=== PATIENT | female | born 1980 | race Hispanic/Latino ===

== ENCOUNTER 2022-03-31 15:02 | Emergency (ER) | payer MEDICAID ==
[~2022-03-31] VITALS: Ht 165.1 cm; Wt 145.1 kg
[2022-03-31 15:56] LABS: BASOPHILS % (AUTO) 0.4 % (0.0-5.0); EOSINOPHILS % (AUTO) 3.1 % (0.0-8.0); HEMATOCRIT 29.8 % (36-48); MEAN CORPUSCULAR HEMOGLOBIN 22.5 pg (27.0-33.0); MEAN CORPUSCULAR HGB CONC 30.9 g/dL (32.0-36.0); MONOCYTES % (AUTO) 8.8 % (3.0-13.0); NEUTROPHILS % (AUTO) 58.5 % (40.0-77.0); PLATELET COUNT (AUTO) 346 K/uL (130-400); RED BLOOD CELL COUNT(AUTO) 4.08 MIL/uL (4.00-5.50); RED CELL DISTRIBUTION WIDTH 18.4 % (11.0-15.5); WHITE BLOOD COUNT (AUTO) 9.3 K/uL (4.8-10.8)
[2022-03-31 16:14] LABS: CREATININE 0.7 mg/dL (0.5-1.5); POTASSIUM 4.3 mmol/L (3.5-5.1)
[2022-03-31 16:42] LABS: ALBUMIN 3.2 g/dL (3.5-5.0); TOTAL PROTEIN, SERUM 7.3 g/dL (6.0-8.3)
[2022-03-31 17:33] LABS: APPEARANCE,URINE CLEAR (CLEAR); BILIRUBIN,URINE NEGATIVE (NEGATIVE); GLUCOSE, URINE (UA) NEGATIVE (NEGATIVE); KETONES,URINE NEGATIVE (NEGATIVE); LEUKOCYTE ESTERASE ,URINE NEGATIVE Leu/uL (NEGATIVE); NITRATE,URINE NEGATIVE (NEGATIVE); OCCULT BLOOD,URINE NEGATIVE (NEGATIVE); PROTEIN,URINE NEGATIVE (NEGATIVE); UROBILINOGEN,URINE 0.2 mg/dL (0.2-1.0)
[2022-03-31 17:35] LABS: COLOR,URINE Yellow (YELLOW)
[2022-03-31 17:51] VITALS: BP 124/61
== END 2022-03-31 17:55 | disposition home or self-care (01) ==
LOC: EDH 15:02
DX: O20.0 Threatened abortion (principal); Z3A.10 10 weeks gestation of pregnancy; Z90.49 Acquired absence of other specified parts of digestive tract
CPT/HCPCS: 36415; 76801; 80053; 81003; 84702; 85025; 86900; 86901

== ENCOUNTER → 2024-07-04 | Outpatient (CLI) | payer MEDICAID ==
--- NOTE | 2024-07-04 10:08 | HMCIMG ---
SHOULDER COMP 2+VWS LT HISTORY: Left shoulder pain COMPARISON: None TECHNIQUE: 2 images of left shoulder were obtained. FINDINGS: There is no acute displaced fracture or dislocation. IMPRESSION: 1. Findings as described above.
--- NOTE | 2024-07-04 10:08 | HMCIMG ---
KNEE 3VWS LT HISTORY: Left knee pain COMPARISON: None TECHNIQUE: 3 images of left knee were obtained. FINDINGS: There is no acute displaced fracture or dislocation. There is soft tissue swelling. Degenerative changes are seen. IMPRESSION: 1. Findings as described above.
--- NOTE | 2024-07-04 10:08 | HMCIMG ---
LUMBAR SPINE 2-3VWS HISTORY: Low back pain COMPARISON: None FINDINGS: 3 images of lumbar spine were obtained. There is straightening of normal lordotic curvature which may be related to muscle spasm or positioning. No loss of vertebral height is seen. No fracture or dislocation is seen. Degenerative changes are seen. IMPRESSION: 1. No fracture is seen.
== END | disposition home or self-care (01) ==
LOC: RAH 09:04
PROVIDERS: ATTEND Physician Assistant
DX: M17.12 Unilateral primary osteoarthritis, left knee (principal); M25.512 Pain in left shoulder; M54.50 Low back pain, unspecified; M25.562 Pain in left knee; M47.816 Spondylosis without myelopathy or radiculopathy, lumbar region
CPT/HCPCS: 72100; 73030; 73562

== ENCOUNTER 2024-07-20 12:15 | Emergency (ER) | payer MEDICAID ==
[~2024-07-20] VITALS: Ht 165.1 cm; Wt 145.1 kg
--- NOTE | 2024-07-20 12:23 | ERN ---
ED Note History of Present Illness Stated Complaint: FALL Chief Complaint: Mechanical Fall Time Seen by MD: 12:16 Time Seen by Midlevel: 12:20 Dictation: The 43-year-old female with no past medical history coming in via EMS for left ankle pain after ground level fall. [place] and [place] forward, she then went home and then called EMS from her home. At this time she denies hitting her head denies any other complaints but her left ankle. Patient is currently taking amoxicillin and ibuprofen for a tooth infection. Allergies: Coded Allergies: No Known Allergies (Unverified Allergy, Unknown, 03/31/22) Past Medical History Past Medical History: No Pertinent History Surgical History: Cholecystectomy, : 4 Para: 2 Aborts: 1 Review of System Dictation Constitutional: Negative for fever,chills, and weight loss Eyes: Negative for injury, pain,redness, and discharge ENT: Negative for injury,pain or swelling Cardiovascular: Negative for chest pain, palpitations, and edema Respiratory: Negative for shortness of breath, cough, and wheezing, Abdomen/GI: Negative for abdominal pain, nausea, vomiting, diarrhea, and constipation Back: Negative for injury and pain : Negative for injury, bleeding and discharge MS/Extremity: Complaining of left ankle pain and swelling Skin: Negative for rash, and discoloration Neuro: Negative for headache, weakness, numbness, tingling, and seizure Psych: Negative for suicide ideation, homicidal ideation, and hallucinations Review of Systems: was completed Initial Vital Sign VS Vital Signs Date Time Temp Pulse Resp B/P (MAP) Pulse Ox O2 Delivery O2 Flow Rate FiO2 07/20/24 12:16 98.2 94 16 148/82 98 Room Air 0 07/20/24 14:15 21 Physical Exam Dictation General: awake, alert, NAD Head/Face: Normocephalic, atraumatic Eyes: PERRL, EOMI, vision at baseline ENT: oral cavity clear, TMs clear, no signs of infection Neck: Trachea midline, supple, no nuchal rigidity Cardiovascular: RRR, normal S1/S2, No MRGs, no JVD Respiratory: CTAB, no respiratory distress, No rales or wheezes Abdomen: Soft, non-tender, non-distended, normal bowel sounds, no guarding or rebound. Skin: Warm, dry, normal turgor, no rash MS/Extremity: Pulses equal, no cyanosis, neurovascular intact, limited range of motion to the left ankle, swelling, pedal pulse intact Neuro: COAx4, GCS 15, strength 5/5, CN 2-12 intact, normal cerebellar exam, normal gait, Psych: Normal behavior, mood, and affect normal ED Course ED Course Orders Procedure Category Date Status Time Ankle Comp 3vws Lt RAD 07/20/24 Taken 12:19 Hydrocodone/Apap PHA 07/20/24 Complete 5/325 ([place] 5/325mg) 12:19 Crutches GIGI 07/20/24 In Process 13:37 *Nursing CPOE 07/20/24 Transmitted Communication: 13:37 Foot Comp 3+Vws Lt RAD 07/20/24 Taken 14:16 Current Medications Medications (Trade) Dose Ordered Sig/Tram Route PRN Reason Start Time Stop Time Status Last Admin Dose Admin Acetaminophen/ Hydrocodone Bitart ([place] 5/325MG) 1 tab ONCE STAT PO 07/20/24 12:19 07/20/24 12:26 DC 07/20/24 12:51 Vital Signs Date Time Temp Pulse Resp B/P (MAP) Pulse Ox O2 Delivery O2 Flow Rate FiO2 07/20/24 14:15 98.2 72 18 133/34 97 Room Air* 0 21 07/20/24 12:16 98.2 94 16 148/82 98 Room Air 0 Medical Decision Making MDM MDM: The 43-year-old female with no past medical history coming in via EMS for left ankle pain after ground level fall. [place] and fell forward, she then went home and then called EMS from her home. At this time she denies hitting her head denies any other complaints but her left ankle. Patient is currently taking amoxicillin and ibuprofen for a tooth infection. X-ray of the ankle interpreted by ER MD and myself. No abnormality seen. X-ray of the left foot shows a possible acute on chronic 5th metatarsal fracture interpreted by ER MD. Patient will leave with a splint on and crutches to follow up with PCP. Discussed with the patient's findings, educated to use crutches until she is cleared by PCP in where she sees an orthopedic. Patient verbalize understanding, answered all questions. Differential diagnosis: Ankle fracture, ankle sprain, ankle contusion Rationale: Tests considered and ordered secondary to shared decision making include: Previous outside records reviewed: Old ER visits. Risk of complication and/or morbidity or mortality of patient management: None Medications-Per medication reconciliation Need for hospitalization: Patient does not meet criteria for hospitalization. Need for emergency major/minor surgery: No There are no social concerns with this patient. Prescription drug management Prescriptions will include symptomatic care Patient's prior external medical records from other ER visits were reviewed by me as indicated. Prior testing and results from previous visits were reviewed. Prior tests were taken into account with medical decision making and resource utilization, independent historian/historians were used to obtain complete medical history. I independently interpreted the test that were performed, results were reviewed by me and considered findings on radiology if ordered. Medical management and examination interpretation discussions were had by me with other qualified healthcare professionals as indicated for the patient's c are. DX & DISP Disposition: Discharge Departure Impression: Primary Impression: Ankle sprain Additional Impression: Fracture of 5th metatarsal Condition: Stable Additional Instructions: You splint or boot until cleared by ORTHO. Follow up with him in 1-2 days. Return to the hospital if anything worsens. Take Tylenol or Motrin [id number] for pain control. Referrals: JAMAR THOMAS MD Time of Disposition: 13:41 I have reviewed the case, and I agree with, Diagnosis and Plan FADY PANG NP Jul 20, 2024 12:23
[2024-07-20] MEDS: HYDROcodone/APAP 5/325 1 TAB TABLET PO STA (12:51)
[2024-07-20 15:29] VITALS: BP 138/71; PULSE 72; RESP 18; TEMP 98.2; O2SAT 98
--- NOTE | 2024-07-20 15:48 | HMCIMG ---
FOOT COMP 3+VWS LT HISTORY: Foot pain COMPARISON: None TECHNIQUE: 3 images of the left lower tendon. FINDINGS: Deformity is seen at the base of the fifth metatarsal bone suggested a fracture of indeterminate age. Clinical correlation is compared. There is a cochlear spur. No dislocation is seen. Degenerative changes are seen. IMPRESSION: 1. Findings as described above.
--- NOTE | 2024-07-20 15:51 | NUR ---
UNABLE TO PROVIDE CRUTCHES DUE TO WEIGHT. DME HAS CRUTCHES.
--- NOTE | 2024-07-20 16:01 | HMCIMG ---
ANKLE COMP 3VWS LT HISTORY: Status post fall COMPARISON: None TECHNIQUE: 3 images of the left ankle were obtained. FINDINGS: Fracture displacement is seen involving the base of the fifth metatarsal bone. Degenerative changes are seen. IMPRESSION: 1. Findings as described above.
== END 2024-07-20 15:53 | disposition home or self-care (01) ==
LOC: EDH 12:15
DX: S92.352A Displaced fracture of fifth metatarsal bone, left foot, initial encounter for closed fracture (principal); S93.492A Sprain of other ligament of left ankle, initial encounter; Z90.49 Acquired absence of other specified parts of digestive tract; Z98.890 Other specified postprocedural states; W01.0XXA Fall on same level from slipping, tripping and stumbling without subsequent striking against object, initial encounter; Y93.89 Activity, other specified; Y92.89 Other specified places as the place of occurrence of the external cause; Y99.8 Other external cause status
CPT/HCPCS: 73610; 73630; 99284

== ENCOUNTER 2025-03-14 09:07 | Emergency (ER) | payer MEDICAID ==
[~2025-03-14] VITALS: Ht 165.1 cm; Wt 163.3 kg
[2025-03-14 09:41] LABS: IMMATURE GRANULOCYTE ABSOLUTE 0.04 K/uL (0-1); NUCLEATED RED BLOOD CELLS 0.0 % (0.0-0.19); PLATELET COUNT (AUTO) 323 K/uL (130-400); RED BLOOD CELL COUNT(AUTO) 4.80 MIL/uL (4.00-5.50); RED CELL DISTRIBUTION WIDTH 14.3 % (11.0-15.5); WHITE BLOOD COUNT (AUTO) 13.1 K/uL (4.8-10.8)
[2025-03-14 09:58] LABS: ASPARTATE AMINOTRANSFERASE 37.0 U/L (10-37); CREATINE KINASE, TOTAL 56.0 U/L (21-232); CREATININE 1.2 mg/dL (0.5-1.0); GLOMERULAR FILTR. RATE CALC 58.0 mL/min (>90); GLUCOSE,RANDOM 139.0 mg/dL (70-105); SODIUM SERUM 139.0 mmol/L (136-145); TOTAL PROTEIN, SERUM 7.9 g/dL (6.0-8.3); UREA NITROGEN, BLOOD 15.0 mg/dL (7-18)
[2025-03-14] MEDS: 0.9%NACL 1000ML 1,000 ML IV ONE (10:07)
--- NOTE | 2025-03-14 10:57 | HMCIMG ---
EXAM: CT Abdomen and Pelvis Without IV contrast CLINICAL HISTORY: diffuse abdominal pain TECHNIQUE: Axial computed tomography images of the abdomen and pelvis without intravenous contrast. CONTRAST: No IV contrast. COMPARISON: None provided. FINDINGS: LUNG BASES: The lung bases appear clear. No pleural effusions are seen. LIVER: Unremarkable. GALLBLADDER AND BILE DUCTS: Cholecystectomy. No biliary ductal dilatation is evident. PANCREAS: Unremarkable. SPLEEN: Unremarkable. ADRENAL GLANDS: Unremarkable. KIDNEYS, URETERS, AND BLADDER: The kidneys appear within normal limits. There is no hydronephrosis or hydroureter. No urinary calculi are seen. STOMACH AND BOWEL: Unremarkable appearance of the stomach and bowel. No evidence of bowel obstruction. No evidence suggesting enteritis or colitis. 5.2 x 4.6 x 3.1 cm fat-containing umbilical hernia. No bowel containing hernia. APPENDIX: Normal appendix. PERITONEUM: No free fluid. No free air. LYMPH NODES: No lymphadenopathy is evident. REPRODUCTIVE: Unremarkable as visualized. VASCULATURE: No evidence of abdominal aortic aneurysm. BONES: No aggressive appearing osseous lesion. No acute osseous pathology evident. IMPRESSION: No acute intra-abdominal or pelvic abnormality. 5.2 x 4.6 x 3.1 cm fat-containing umbilical hernia. No bowel containing hernia. /[place]
--- NOTE | 2025-03-14 11:44 | ERN ---
ED Note History of Present Illness Stated Complaint: ABDOMINAL PAIN Chief Complaint: Abdominal Pain Time Seen by MD: 09:09 Dictation: 44-year-old female presenting to the emergency department with diffuse abdominal pain nausea vomiting and diarrhea nonbloody over the past few days worse this morning. Patient reports history of gallbladder removal Allergies: Coded Allergies: No Known Allergies (Unverified Allergy, Unknown, 03/31/22) Past Medical History Past Medical History: Diabetes-Type II Surgical History: Cholecystectomy, : 4 Para: 2 Aborts: 1 Review of System Dictation Constitutional: Negative for fever,chills, and weight loss Eyes: Negative for injury, pain,redness, and discharge ENT: Negative for injury,pain or swelling Cardiovascular: Negative for chest pain, palpitations, and edema Respiratory: Negative for shortness of breath, cough, and wheezing, Abdomen/GI: Per Hpi : Negative for injury, bleeding and discharge MS/Extremity: Negative for injury and deformity Skin: Negative for rash, and discoloration Neuro: Negative for headache, weakness, numbness, tingling, and seizure Psych: Negative for suicide ideation, homicidal ideation, and hallucinations Initial Vital Sign VS Vital Signs Date Time Temp Pulse Resp B/P (MAP) Pulse Ox O2 Delivery O2 Flow Rate FiO2 03/14/25 09:09 98.1 91 18 124/71 100 Room Air 03/14/25 11:26 0 21 Physical Exam Dictation General: awake, alert, NAD Head/Face: Normocephalic, atraumatic Eyes: PERRL, EOMI, vision at baseline ENT: oral cavity clear, TMs clear, no signs of infection Neck: Trachea midline, supple, no nuchal rigidity Cardiovascular: RRR, normal S1/S2, No MRGs, no JVD Respiratory: CTAB, no respiratory distress, No rales or wheezes Abdomen: Soft, mild diffuse tenderness to palpation, non-distended, normal bowel sounds, no guarding or rebound. Skin: Warm, dry, normal turgor, no rash MS/Extremity: Pulses equal, no cyanosis, neurovascular intact, FROM Neuro: COAx4, GCS 15, strength 5/5, CN 2-12 intact, normal cerebellar exam, normal gait, Psych: Normal behavior, mood, and affect normal Results (Laboratory/Radiology) Laboratory/Radiology Laboratory Tests Test 12/10/25 09:34 White Blood Count 13.1 K/uL (4.8-10.8) H Red Blood Count 4.80 MIL/uL (4.00-5.50) Hemoglobin 13.1 g/dL (12.0-16.0) Hematocrit 40.5 % (36-48) Mean Corpuscular Volume 84.4 fL (79-99) Mean Corpuscular Hemoglobin 27.3 pg (27.0-33.0) Mean Corpuscular Hemoglobin Concent 32.3 g/dL (32.0-36.0) Red Cell Distribution Width 14.3 % (11.0-15.5) Platelet Count 323 K/uL (130-400) Mean Platelet Volume 11.1 fL (7.5-10.5) H Immature Granulocyte % (Auto) 0.3 % (0-1) Neutrophils (%) (Auto) 75.0 % (40.0-77.0) Lymphocytes (%) (Auto) 17.2 % (21.0-51.0) L Monocytes (%) (Auto) 4.7 % (3.0-13.0) Eosinophils (%) (Auto) 2.6 % (0.0-8.0) Basophils (%) (Auto) 0.2 % (0.0-5.0) Neutrophils # (Auto) 9.8 K/uL (1.8-7.7) H Lymphocytes # (Auto) 2.3 K/uL (1.0-4.8) Monocytes # (Auto) 0.6 K/uL (0.1-1.0) Eosinophils # (Auto) 0.34 K/uL (0.00-0.70) Basophils # (Auto) 0.02 K/uL (0.00-0.20) Absolute Immature Granulocyte (auto 0.04 K/uL (0-1) Nucleated Red Blood Cells 0.0 % (0.0-0.19) Sodium Level 139 mmol/L (136-145) Potassium Level 4.0 mmol/L (3.5-5.1) Chloride Level 102 mmol/L (101-111) Carbon Dioxide Level 30 mmol/L (21-32) Blood Urea Nitrogen 15 mg/dL (7-18) Creatinine 1.2 mg/dL (0.5-1.0) H Glomerular Filtration Rate Calc 58 mL/min (>90) Random Glucose 139 mg/dL (70-105) H Total Calcium 8.5 mg/dL (8.5-10.1) Total Bilirubin 0.7 mg/dL (0.2-1.0) Direct Bilirubin 0.1 mg/dL (0.0-0.3) Aspartate Amino Transf (AST/SGOT) 37 U/L (10-37) Alanine Aminotransferase (ALT/SGPT) 64 U/L (12-78) Alkaline Phosphatase 93 U/L (50-136) Total Creatine Kinase 56 U/L (21-232) Total Protein 7.9 g/dL (6.0-8.3) Albumin 3.6 g/dL (3.5-5.0) Lipase 32 U/L (16-77) Serum Test, Qualitative NEGATIVE (NEGATIVE) Labs Reviewed?: Yes ED Course ED Course Orders Procedure Category Date Status Time Cbc With Differential LAB 03/14/25 Complete 09:21 Basic Metabolic Panel LAB 03/14/25 Complete 09:21 Hepatic Function Panel LAB 03/14/25 Complete 09:21 Creatine Kinase, Total LAB 03/14/25 Complete 09:21 Urinalysis Profile LAB 03/14/25 Logged 09:21 Testing, LAB 03/14/25 Complete Serum Hcg 09:21 Lipase LAB 03/14/25 Complete 09:21 Ct Abd/Pel Wo Con CT 03/14/25 Resulted Renal/Appy 09:21 Ondansetron 4mg Inj PHA 03/14/25 Complete (Zofran 4mg Inj) 09:21 Ketorolac PHA 03/14/25 Complete Tromethamine 15mg/Ml 09:21 0.9%Nacl 1000ml (Ns PHA 03/14/25 Complete 1000ml) 09:30 Morphine 4mg Syg PHA 03/14/25 Complete (Morphine 4mg Syg) 11:30 Current Medications Medications (Trade) Dose Ordered Sig/Tram Route PRN Reason Start Time Stop Time Status Last Admin Dose Admin Ketorolac Tromethamine (toRADol) 15 mg ONCE STAT IV 03/14/25 09:21 03/14/25 09:24 DC 03/14/25 10:07 Morphine Sulfate (morPHINE 4MG SYG) 4 mg ONCE ONCE IVP 03/14/25 11:30 03/14/25 11:31 DC 03/14/25 11:21 Ondansetron HCl (zoFRAN 4MG INJ) 4 mg ONCE STAT IVP 03/14/25 09:21 03/14/25 09:24 DC 03/14/25 10:07 Sodium Chloride 1,000 ml @ 0 mls/hr ONCE ONCE IV 03/14/25 09:30 03/14/25 09:31 DC 03/14/25 10:07 Vital Signs Date Time Temp Pulse Resp B/P (MAP) Pulse Ox O2 Delivery O2 Flow Rate FiO2 03/14/25 11:26 98.1 84 16 132/84 94 Room Air* 0 21 03/14/25 09:09 98.1 91 18 124/71 100 Room Air Medical Decision Making MDM MDM: Differential diagnosis: Rationale: Tests considered and ordered secondary to shared decision making include: Previous outside records reviewed: Old ER visits. Risk of complication and/or morbidity or mortality of patient management: None Medications-Per medication reconciliation Need for hospitalization: Patient does not meet criteria for hospitalization. Need for emergency major/minor surgery: No There are no social concerns with this patient. Prescription drug management Prescriptions will include symptomatic care Patient's prior external medical records from other ER visits were reviewed by me as indicated. Prior testing and results from previous visits were reviewed. Prior tests were taken into account with medical decision making and resource utilization, independent historian/historians were used to obtain complete medical history. I independently interpreted the test that were performed, results were reviewed by me and considered findings on radiology if ordered. Medical management and examination interpretation discussions were had by me with other qualified healthcare professionals as indicated for the patient's care. 44-year-old female with acute abdominal pain acute gastroenteritis, stable exam CT scan negative, stable for discharge. DX & DISP Disposition: Discharge Departure Impression: Primary Impression: Acute abdominal pain Condition: Stable Scripts Ondansetron (Ondansetron Odt) 4 Mg Tab.rapdis 1 TAB PO BID PRN for nausea/vomiting for 5 Days, #10 TAB 0 Refills Prov: EMBER NIXON MD 03/14/25 Referrals: ALIDA GARCIA PA-C (PCP) EMBER NIXON MD Mar 14, 2025 11:44
[2025-03-14 12:08] VITALS: BP 141/70; PULSE 88; RESP 16; TEMP 97.8; O2SAT 99
[2025-03-14] MEDS: DICYCLOMINE 20MG (10MG/ML) AMP IM STA (12:34)
== END 2025-03-14 12:45 | disposition home or self-care (01) ==
LOC: EDH 09:07
DX: R10.84 Generalized abdominal pain (principal); R11.2 Nausea with vomiting, unspecified; R19.7 Diarrhea, unspecified; E11.9 Type 2 diabetes mellitus without complications; Z90.49 Acquired absence of other specified parts of digestive tract; Z98.890 Other specified postprocedural states
CPT/HCPCS: 99285; 74176; 96374; 96375; 96361; 82550; 80076; 80048; 84703; 83690; 85025; 36415; 96372; J1885; J7030; J2405 ×2; J2270; J0500